=== PATIENT | male | born 1990 | race Caucasian/White ===

== ENCOUNTER 2019-09-01 00:41 | Emergency (ER) | payer OTHER ==
--- NOTE | 2019-09-01 01:42 | EDM.PDOC ---
ED HPI GENERAL MEDICAL PROBLEM - General Chief Complaint: General Stated Complaint: PT GOT EXPOSED TO CHEMICAL ON HIS RT HAND Time Seen by Provider: 09/01/19 01:30 Source of Information: Reports: Patient - History of Present Illness INITIAL COMMENTS - FREE TEXT/NARRATIVE: The patient is a 28-year-old male who presents to the ER secondary to the concern for a hydraulic injection pressure injury to his right hand. The patient states that approximately 13 hours ago, he was removing a fitting at work, then fluid under pressure from hydraulic fitting sprayed onto his hand. His hand was not injected with any metal or punctured with anything, it was strictly pressure from the fluid. He started researching hydraulic injection pressure injuries. He wanted to make sure he was okay. He has not had any redness, nothing has actually injected into his hand as discussed, he does have some bruising along the dorsum of the thenar eminence of his right hand but no other complaints. Right Hand Pain Score (Numeric/FACES): 4 - Related Data Allergies Allergy/AdvReac Type Severity Reaction Status Date / Time No Known Allergies Allergy Verified 09/01/19 00:56 Home Meds: Home Meds . [No Known Home Meds] 09/01/19 [History] Past Medical History - Past Health History Medical/Surgical History: Denies Medical/Surgical History Social & Family History - Family History Family Medical History: Noncontributory - Tobacco Use Smoking Status *Q: Never Smoker Second Hand Smoke Exposure: No - Caffeine Use Caffeine Use: Reports: Coffee - Recreational Drug Use Recreational Drug Use: No ED ROS GENERAL - Review of Systems Review Of Systems: See Below (Positive right hand tenderness, negative for puncture wound, negative for weakness, negative for redness, all other Positives and pertinent negatives as per HPI. All other pertinent systems were reviewed and are negative) ED EXAM, GENERAL - Physical Exam Exam: See Below Free Text/Narrative:: Constitutional: No acute distress, Non-toxic appearance. HEENT: Normocephalic, Atraumatic, EOMI Neck: Normal range of motion, No stridor, trachea midline Respiratory: No respiratory distress, No tachypnea Cardiovascular: Deferred Gastrointestinal: Deferred Genital / Urinary: Deferred Musculoskeletal: All four extremities present, right hand has full range of motion, there is a very small superficial hematoma on the dorsal aspect of the right thenar eminence, there is no erythema, no induration, no warmth, no skin defects Back: FROM Integument: Warm, Dry, Color is ethnicity appropriate, No rash. Neuro: Alert, Awake, No focal deficits noted Psych: Affect, Judgement, mood normal Course - Vital Signs Text/Narrative:: History and exam are not consistent with a true hydraulic injection injury. This was fluid hitting his skin and if anything it would cause a thermal burn but there are no signs of any gonzales. Furthermore, this happened over 13 hours ago and the patient hand looks fine. Education was provided and the patient is stable for discharge. Last Recorded V/S: Last Vital Signs Temp 36.3 C 09/01/19 00:46 Pulse 74 09/01/19 00:46 Resp 17 09/01/19 00:46 BP 146/68 H 09/01/19 00:46 Pulse Ox 97 09/01/19 00:46 Departure - Departure Time of Disposition: 01:41 Disposition: Home, Self-Care 01 Clinical Impression: Contusion of hand, right - Discharge Information Instructions: Contusion, [id number] Referrals: PCP,None [Primary Care Provider] - Forms: ED Department Discharge Additional Instructions: The counter medications such as ibuprofen, Tylenol and ice as needed for pain. Return for any concerns. Sepsis Event Note - Evaluation Sepsis Screening Result: No Definite Risk - Focused Exam Vital Signs: Vital Signs Temp Pulse Resp BP Pulse Ox 09/01/19 00:46 36.3 C 74 17 146/68 H 97 Date Exam was Performed: 09/01/19 Time Exam was Performed: 05:03
== END 2019-09-01 01:56 | disposition home or self-care (01) ==
LOC: MW.ED 00:41
DX: S60.221A Contusion of right hand, initial encounter (principal); W22.8XXA Striking against or struck by other objects, initial encounter
CPT/HCPCS: 99282; 99283